=== PATIENT | female | born 1975 | race Caucasian/White ===

== ENCOUNTER 2021-08-17 13:47 | Emergency (ER) | payer OTHER ==
[2021-08-17] MEDS ORDERED: Bacitracin 1 PK ONE (14:33)
[2021-08-17] MEDS ORDERED: Lidocaine 1% (PF) 30 ML VIAL ONE (14:33)
[2021-08-17] MEDS ORDERED: Amoxicillin/Potassium Clav 875 MG TAB ONE (14:34)
[2021-08-17] MEDS ORDERED: Boostrix 0.5 ML (Tdap) VIAL ONE (14:34)
== END 2021-08-17 15:24 | disposition home or self-care (01) ==
LOC: NAV ERS 13:47
DX: S61.411A Laceration without foreign body of right hand, initial encounter (principal); S60.141A Contusion of right ring finger with damage to nail, initial encounter; W54.0XXA Bitten by dog, initial encounter; Z23 Encounter for immunization
CPT/HCPCS: 12002; 90471; 90715; J2001